=== PATIENT | male | born 1995 | race Caucasian/White ===

== ENCOUNTER 2022-09-08 14:49 | Emergency (ER) | payer MEDICAID ==
[~2022-09-08] VITALS: Ht 180.3 cm; Wt 105.7 kg
[2022-09-08 14:59] VITALS: BP_SYST 127
--- NOTE | 2022-09-08 14:59 | NUR ---
Pt triaged and placed in waiting room. V/S stable, pt alert/oriented and ambulatory.
--- NOTE | 2022-09-08 15:00 | NUR ---
Pt walked in to ER with c/o right foot pain 10/16 x1 year, reports h/o fracture 1 year ago. States "I want to see if it's broken again" Denies any injury to foot. Pt is ambulatory without assist. V/S stable
[2022-09-08 15:04] VITALS: BP_SYST 127
--- NOTE | 2022-09-08 15:06 | NUR ---
Dr. Mohamud to waiting room to see patient.
--- NOTE | 2022-09-08 16:11 | NUR ---
Pt left prior to treatment being completed
== END 2022-09-08 16:10 | disposition left against medical advice (07) ==
LOC: SED 14:49
DX: M79.672 Pain in left foot (principal); Z79.899 Other long term (current) drug therapy
CPT/HCPCS: 99281